=== PATIENT | male | born 1950 | race Caucasian/White ===

== ENCOUNTER 2018-12-11 23:11 | Emergency (ER) | payer OTHER ==
--- NOTE | 2018-12-11 23:31 | EDPHY ---
General Time Seen by Provider: 12/11/18 23:31 Narrative: CLINICAL IMPRESSION: Alcohol intoxication, mechanical fall, scalp laceration and right hip pain ASSESSMENT/PLAN: Patient is a 68-year-old male with no reported medical history who presents to the emergency department after sustaining a mechanical fall complaining of scalp laceration. Patient is well appearing and in no acute distress, complains of mild discomfort at site of impact on his scalp as well as a right hip pain. The fall was witnessed by his son and there was no loss of consciousness. The patient is clinically intoxicated however is alert and oriented. Patient is afebrile and nontoxic-appearing, he is in no acute distress on arrival. His neurological exam is grossly normal with no focal deficit. Examination reveals multiple lacerations on the right posterior crown- scalp. CT head and cervical spine without acute fracture, evidence of intracranial hemorrhage, vertebral fracture or subluxation. Right hip x-ray reveals no evidence of acute dislocation or fracture, moderate degenerative changes; no physical findings to suggest joint instability, compartment syndrome or neurovascular compromise. History and physical examination is consistent with acute alcohol intoxication, scalp laceration lacerations x4 and acute right hip pain. The patient's scalp lacerations were repaired as discussed in the procedure note, he tolerated this well. There was no evidence of bony involvement, deep structure involvement, significant hematoma or vascular compromise. He was up-to-date on his tetanus status. He was observed for a period of time and his neurological exam remained grossly normal with no focal deficit. The patient was present with his son who is clinically sober, the patient was considered stable for discharge in the care of his son. The patient and son had no further concerns. Upon re-examination prior to discharge the patient was able to ambulate independently and without difficulty. The patient is well established with his PCP at [facility] and will schedule follow-up appointment next week for staple removal. Strict return precautions were discussed- they will return to the emergency department for altered mentation, lethargy, vomiting, seizure, abnormal movements or for any other concerning symptom. Patient verbalizes understanding and is in agreement with this plan. DIFFERENTIAL DX: Head injury including but not limited to concussion, skull fracture, intraparenchymal contusion, subarachnoid, subdural and epidural hematoma. ED PROCEDURES: Procedure: Laceration repair. Verbal consent was obtained from the patient. The superficial laceration on the right posterior scalp was anesthetized in the usual fashion. The wounds were irrigated, draped and explored to its base with a gloved finger. There were no deep structures involved. There were 4 separate lacerations on the right posterior crown. Laceration 1 was approximately 1.5 cm in length located medially and superiorly, required 4 june total. Laceration to located laterally and superiorly was approximately 1.5 cm in length and required 4 june total. Laceration 3 located medially and inferiorly was approximately 1 cm in length and required 3 june. The 4th laceration was located inferiorly and laterally, was approximately 1 cm in length and required 2 june. All lacerations were well- approximated and hemostasis was achieved. A total of 13 june were placed. The wounds were repaired with june. The wound repair was simple. The procedure was performed by myself. ED COURSE: [id number]: Case discussed with Dr. Cee [id number]: Dr. Mathew with Radiology called to inform me CT head and neck were negative for acute intracranial hemorrhage, skull fracture, vertebral fracture or subluxation. Right hip x-ray reveals degenerative changes, no evidence of acute fracture or dislocation. CHIEF COMPLAINT: Fall, scalp laceration, right hip pain HPI: Patient is a 68-year-old male who reportedly takes no medications presents to the emergency department after sustaining a mechanical trip and fall while at a concert. Patient is present with his son, they endorse heavy drinking this evening. Patient lost his balance causing him to fall onto his right hip and subsequently hitting the back of his head on the ground. Patient sustained a scalp laceration, they were able to get the bleeding under control. There was no loss of consciousness, he is not on aspirin or anticoagulation therapy, there has been no altered mentation, no retrograde amnesia, no focal neurologic deficit, no vomiting and no posttraumatic seizure. Patient complains of pain at the site of impact as well as right hip pain. He denies any headache, dizziness, visual changes, chest pain, shortness of breath or abdominal pain. He also denies any neck pain or back pain. He has been able to ambulate without difficulty. He has no history of remote injury to the right hip or surgery. Patient denies saddle paresthesias, lower extremity numbness, tingling , major motor weakness, urinary retention or bowel/bladder incontinence. PMH: Denies Family History: Not contributory Social History: ETOH, denies drug use REVIEW OF SYSTEMS: All other systems negative Constitutional: No fever, no chills, appetite change. Eyes: No discharge, vision change ENT: No sore throat, congestion, ear pain. Cardiovascular: No chest pain, no palpitations. Respiratory: No cough, no shortness of breath. Gastrointestinal: No abdominal pain, no vomiting, diarrhea. Genitourinary: No hematuria, dysuria, flank pain, pelvic pain Musculoskeletal: Right hip pain. No back pain, joint swelling, myalgias. Skin: Scalp laceration. No rashes, color change. Neurological: No headache, dizziness, weakness. PHYSICAL EXAM: General Appearance: Well-developed, smokes of alcohol, no acute distress and not toxic-appearing. HENT: Normocephalic. Right posterior crown with 4 separate lacerations ranging from 1 to 1.5 cm. Small underlying soft hematoma, blood clot easily expressed. No Morillo sign or raccoon eyes. Bilateral external ears are normal. Bilateral tympanic membranes are normal with pearly kenny reflex. No hemotympanum bilaterally. Nares are clear, mucosa is pink. Oropharynx is clear, uvula is midline. There is no tonsillar enlargement or exudate. The dentition is normal. Eyes: PERRLA, EOMI intact without evidence of entrapment, no nystagmus, swelling , discharge, pain or photosensitivity. Conjunctiva pink, no pallor or injection Neck: Supple, nontender, no lymphadenopathy, no midline pain, FROM, no meningismus. Respiratory: There are no retractions, lungs are clear to auscultation. Cardiac: Regular rate and rhythm, no murmurs or gallops. Gastrointestinal: Abdomen is soft, nontender, bowel sounds normal, no masses/ hernia, no rigidity, guarding or focal peritoneal findings. Back: No step-off, palpable bony abnormality, edema, erythema or ecchymosis of the cervical, thoracic or lumbar spines. Patient has no tenderness to palpation of his thoracic or lumbar spines. FROM of C-spine. Limited ROM of lumbar spine due to pain. 5/5 and equal strength of the UEs and LEs bilaterally including shoulder shrug. Pulses: 2+ and equal radial, DP and PT pulses bilaterally. Sensation intact and symmetric to light touch from face, UEs and LEs bilaterally. Straight leg raise negative bilaterally. Pelvis is stable, patient has generalized tenderness to palpation along the superior iliac crest of the right pelvis. No ecchymosis, abrasions or edema. Full range of motion of the hip intact. Neurological: Alert and oriented x 3, CN 2-12 grossly intact, normal gait no ataxia, DTR's intact, normal sensation and strength. Skin: Scalp lacerations as mentioned. Warm, dry, no rashes, no nodules on palpation. Musculoskeletal: Extremities are symmetrical, full range of motion, no tenderness, deformity, swelling, or erythema. Psychiatric: Patient is oriented X 3, there is no agitation. MEDICAL DECISION MAKING: Patient was seen independently. Secondary supervising physician at time of evaluation was Dr. Cee, he did not evaluate this patient however case, plan of care and results were discussed with him. Diagnosis: Scalp laceration, alcohol intoxication, right hip pain. New, requires workup Summary: See Assessment and Plan for summary of ED visit Clinical lab tests: ordered / reviewed. Independent visualization of images, tracing, or specimens: Yes. Decision to obtain medical records or history from someone other than the patient: Yes, son Review / Summarize previous medical records: No Discussed patient with another provider: Yes, Dr. Cee Patient Progress: Stable, discharge. - Diagnostics Imaging Results: Imaging Impressions Hip X-Ray 12/11/18 23:38 Impression: Moderate right hip osteoarthritis. Cervical Spine CT 12/11/18 23:42 Impression: 1. Lower cervical degenerative changes. No acute fracture identified. Results called to the emergency room at the time of the examination. Head CT 12/11/18 23:42 Impression: Negative noncontrast CT of the brain. Results called to Makayla Hooper at the time of the interpretation. - History Smoking Status: Current every day smoker - Objective Vital Signs: Initial Vital Signs Temperature (C) 36.7 C 12/11/18 23:17 Heart Rate 74 12/11/18 23:17 Respiratory Rate 16 12/11/18 23:17 O2 Sat (%) 94 12/11/18 23:17 O2 Delivery Mode Room Air Allergies/Adverse Reactions: No Known Allergies Allergy (Unverified 12/11/18 23:17) Home Medications: Medication Instructions Recorded NK [No Known Home Meds] 12/11/18 Departure - Departure Disposition: Home, Routine, Self-Care Clinical Impression: Acute right hip pain Scalp laceration Qualifiers: Encounter type: initial encounter Qualified Code(s): S01.01XA - Laceration without foreign body of scalp, initial encounter Alcohol intoxication Qualifiers: Complication of substance-induced condition: uncomplicated Qualified Code(s): F10.920 - Alcohol use, unspecified with intoxication, uncomplicated Condition: Good Instructions: Laceration (ED) Additional Instructions: DISCHARGE INSTRUCTIONS FROM YOUR DOCTOR Thank you for visiting our emergency department today. Please keep in mind that discharge from the emergency department does not mean that there is nothing wrong - it simply means that we have not identified an emergency condition that requires further evaluation or treatment in the hospital. You should always plan to follow up with primary care for re-evaluation of your condition in the next 2-3 days. Keep wound clean and dry for 24 hours. Clean at least twice daily or when soiled with soap and water, apply antibiotic ointment and dressing. Do not soak the wound while the june are in place. Anticipate staple remover and 7 days, please call [facility] Thursday to schedule an appointment for next Thursday for staple removal. Tried to avoid excessive alcohol use. Tylenol every 4-6 hours as directed as needed for pain. Do not exceed 4000 mg in 24 hours. Ibuprofen as directed every 6-8 hours with food as needed for pain. Stop for stomach upset. Do not exceed 2400 mg in 24 hours. Continue your regular medications as prescribed. Return for signs of wound infection ie: redness, swelling, drainage, foul odor, red streaks, fever, chills, pain, bleeding, if the stitches pop, if the wound opens or for any other new, worsening or worrisome symptoms. People present with illnesses and injuries in different ways, and it is always possible that we have missed something. You may always return for re-evaluation if symptoms worsen or if they are not improving or if you develop new/different symptoms. Again, thank you for choosing our emergency department. We hope that you feel better. Referrals: NONE *PRIMARY CARE P,. [Primary Care Provider] - As per Instructions (Aki, staple removal in 1 week)
[2018-12-12 01:27] VITALS: BP 144/70
== END 2018-12-12 01:27 | disposition home or self-care (01) ==
PROC: 0HQ0XZZ Repair Scalp Skin, External Approach (ICD-10-PCS; principal; 2018-12-11)
DX: S01.01XA Laceration without foreign body of scalp, initial encounter (principal); F10.920 Alcohol use, unspecified with intoxication, uncomplicated; M16.11 Unilateral primary osteoarthritis, right hip; W19.XXXA Unspecified fall, initial encounter; Y92.9 Unspecified place or not applicable; Y93.9 Activity, unspecified; Y99.9 Unspecified external cause status